=== PATIENT | male | born 2000 | race American Indian/Alaskan Native ===

== ENCOUNTER 2022-04-25 06:01 | Day surgery (SDC) | payer MEDICAID ==
[2022-04-25] MEDS ORDERED: LACTATED RINGERS 1,000 ML ONE (06:40)
[2022-04-25] MEDS ORDERED: BUPIVACAINE/PF (0.5%) 5 MG/1 ML 30 ML VIAL INFILTRATI ONE ×2 (07:19→08:38)
[2022-04-25] MEDS ORDERED: LIDOCAINE (1%) 10 MG/1 ML VIAL 20 ML MDV ONE (07:19)
[2022-04-25] MEDS ORDERED: LIDOCAINE MPF (2%) 20 MG/1 ML VIAL 5 ML ONE (07:20)
[2022-04-25] MEDS ORDERED: fentaNYL 100 MCG/2 ML INJ ONE (07:21)
[2022-04-25] MEDS ORDERED: propofoL 200 MG/20 ML VIAL IV ONE (07:21)
[2022-04-25] MEDS ORDERED: ONDANSETRON 4 MG/2 ML INJ IV PRN (07:23)
[2022-04-25] MEDS ORDERED: HYDROmorphone 0.5 MG/0.5 ML INJ IV PRN ×2 (07:23→07:30)
--- NOTE | 2022-04-25 07:25 | Anesthesia Day of Surgery ---
Anesthesia Day of Surgery - Day of Surgery Patient Examined: Yes Patient H&P Reviewed: Yes Patient is NPO: Yes
--- NOTE | 2022-04-25 07:25 | Anesthesia Consultation ---
Anesthesia Consult and Med Hx Date of service: 04/25/22 - Airway Anesthetic Teeth Evaluation: Good ROM Head & Neck: Adequate Mental/Hyoid Distance: Adequate Mallampati Class: Class I Intubation Access Assessment: Good - Pre-Operative Health Status ASA Pre-Surgery Classification: ASA2 Proposed Anesthetic Plan: General - Pulmonary Hx Smoking: No Hx Asthma: Yes ( CHILD ONLY- RESOLVED) Hx Sleep Apnea: No (JUANJOSE PRE SCREEN LOW RISK) - Cardiovascular System Hx Hypertension: No - Central Nervous System Hx Psychiatric Problems: No - Hematic Hx Anemia: No - Other Systems Hx Cancer: No - Additional Comments Anesthesia Medical History Comments: HIV+
[2022-04-25] MEDS ORDERED: HYDROGEN PEROXIDE 118 ML SOLUTION ONE (07:50)
[2022-04-25] MEDS ORDERED: ROCURONIUM 50 MG/5 ML INJ IV ONE (07:53)
[2022-04-25] MEDS ORDERED: MIDAZOLAM 2 MG/2 ML INJ ONE (07:53)
[2022-04-25] MEDS ORDERED: LACTATED RINGERS 1,000 ML IV SCH (08:00)
[2022-04-25] MEDS ORDERED: dexAMETHasone 20 MG/5 ML VIAL ONE (08:20)
[2022-04-25] MEDS ORDERED: ONDANSETRON 4 MG/2 ML INJ ONE (08:20)
[2022-04-25] MEDS ORDERED: LIDOCAINE (1%) 10 MG/1 ML VIAL 20 ML MDV INFILTRATI ONE (08:38)
[2022-04-25] MEDS ORDERED: SODIUM CHLORIDE 0.9% IRR 1,500 ML BOTTLE IR ONE (08:38)
[2022-04-25] MEDS ORDERED: HYDROGEN PEROXIDE 118 ML SOLUTION TP ONE (08:38)
[2022-04-25] MEDS ORDERED: DIBUCAINE 1% OINT 28 GM ONE (08:51)
[2022-04-25] MEDS ORDERED: NEOSTIGMINE 10MG/10 ML INJ MDV ONE (08:59)
[2022-04-25] MEDS ORDERED: HYDROmorphone 0.5 MG/0.5 ML INJ ONE (08:59)
[2022-04-25] MEDS ORDERED: GLYCOPYRROLATE 0.4 MG/2 ML INJ ONE (08:59)
[2022-04-25] MEDS ORDERED: DIBUCAINE 1% OINT 28 GM PR ONE (09:00)
--- NOTE | 2022-04-25 09:11 | Short Stay Summary ---
Short Stay Documentation Date of service: 04/25/22 - History Principal diagnosis: Rectal fistula H&P: obtained from office - Allergies and Medications Current Medications: Allergies No Known Allergies Allergy (Verified 04/06/22 15:59) Home Medications Medication Instructions Recorded Confirmed Last Taken Type Bictegrav/Emtricit/Tenofov Ala 1 tab PO DAILY 04/06/22 04/06/22 Unknown History [Biktarvy 50-200-25 mg (Nf)] Active Medications Hydromorphone HCl (Hydromorphone 0.5 Mg/0.5 Ml Inj) 0.25 mg IV Q10MIN PRN PRN Reason: Pain, Moderate (4-6) Stop: 04/25/22 20:00 Hydromorphone HCl (Hydromorphone 0.5 Mg/0.5 Ml Inj) 0.5 mg IV Q10MIN PRN PRN Reason: Pain , Severe (7-10) Stop: 04/25/22 20:00 Lactated Ringer's (Lactated Ringers) 1,000 mls @ 125 mls/hr IV DIRECT JEFERSON Last Admin: 04/25/22 07:39 Dose: 125 mls/hr Ondansetron HCl (Ondansetron 4 Mg/2 Ml Inj) 4 mg IV ONCE PRN PRN Reason: Nausea And Vomiting Stop: 04/25/22 12:00 - Brief post op/procedure progress note Date of procedure: 04/25/22 Pre-op diagnosis: rectal fistula Post-op diagnosis: same Procedure: rectal exam under anesthesia, fistulectomy, partial sphincterotomy Anesthesia: GETA, local Findings: Transsphincteric anterior fisula in ano Surgeon: PABLO SANCHEZ Physical Instructor: ROLANDO PINEDA Estimated blood loss: minimal (30cc) Pathology: list (fistula tract) Specimen disposition: to lab Condition: stable - Hospital course Hospital course: Pt observed in PACU and discharged to home in stable condition when criteria met - Disposition Condition at discharge: Good Disposition: 01 HOME / SELF CARE / HOMELESS Short Stay Discharge Plan Activity: no restrictions Diet: regular Wound: open to air, per your surgeon's advice Additional Instructions: SEE PRINTED INSTRUCTIONS Follow up with: PRIMARY CARE,MD [Primary Care Provider] - 7 Days PABLO SANCHEZ DO [Staff Physician] - 14 Days Prescriptions: Ibuprofen [Motrin 800 MG tab] 800 mg PO Q8HR PRN #30 tablet PRN Reason: Pain, Moderate (4-6) HYDROcodone/APAP 5-325 [[place] 5/325] 1 each PO Q4HR PRN #20 tablet PRN Reason: Pain , Severe (7-10)
[2022-04-25 10:44] VITALS: BP 141/98
--- NOTE | 2022-04-25 14:07 | Operative Report ---
Operative Report Operative Report: Date of procedure: 04/25/22 Pre-op diagnosis: rectal fistula Post-op diagnosis: same Procedure: rectal exam under anesthesia, fistulectomy, partial sphincterotomy Anesthesia: GETA, local Findings: Transsphincteric anterior fisula in ano Surgeon: PABLO SANCHEZ Product Lead: ROLANDO PINEDA Estimated blood loss: minimal (30cc) Pathology: list (fistula tract) Specimen disposition: to lab Condition: stable Hospital course: Pt observed in PACU and discharged to home in stable condition when criteria met Condition at discharge: Good Disposition: 01 HOME / SELF CARE / HOMELESS HPI and indication: Patient is a 21-year-old male with a history of recurrent perirectal abscesses. Patient is HIV positive but well controlled on antire trovirals. Patient was seen in surgery clinic and noted to have likely rectal fistula. It was recommended that the patient undergo rectal exam under anesthesia with fistulotomy versus fistulectomy, possible seton placement. All risks, benefits, alternatives to surgery were discussed and questions answered. Consent obtained. Procedure in detail: Patient was identified in the preoperative area, taken back to operating room. After anesthesia was induced on the patient's stretcher, the patient was transferred to the operating room table in prone position. All bony prominences were padded appropriately per protocol. The patient was placed in jackknife position and the buttocks taped apart using silk tape. The rectum and perirectal area was prepped and draped in usual sterile fashion a timeout performed. A rectal exam under anesthesia was performed with a fansler retractor. A skin lesion in the left anterior position was identified and investigated with a rectal probe. The probe extended through the subcutaneous tissue into the rectum and through the external sphincter. Hydrogen peroxide was injected into the tract using an 18 G angiocath and there was peroxide visualized where the probe exited into the rectum through the external sphincter. The tract was unroofed using a 15 blade. Partial sphincterotomy was performed through external sphincter. Chronic scar tissue in the tract was excised and passed off table as specimen. The cavity was checked for hemostasis and carefully ensured. The rectum was irrigated. Local anesthetic was infiltrated into all 4 quadrants of the perirectal tissue. A Surgifoam gauze coated with dibucaine was inserted into the rectum. The skin was cleansed and a 4 x 4 gauze was used to cover the rectum, covered by ABD pad, and secured with mesh underwear. At the end of the case all sponge, instrument, sharp counts were correct x2. The patient was awoken from anesthesia and transferred back to the stretcher in supine position. He was extubated and taken to PACU in stable condition.
--- NOTE | 2022-04-25 16:11 | Post Anesthesia Evaluation ---
- Post Anesthesia Evaluation Patient Participated: Yes Airway Patent: Yes Stable Respiratory Function: Yes Nausea/Vomiting: No Temp > 96.8F: Yes Pain Manageable: Yes Adequeate Hydration: Yes Anesthesia Complications: No Block Receding Appropriately: Not Applicable Patient on Ventilator: No
== END 2022-04-25 10:20 | disposition home or self-care (01) ==
LOC: OR 06:01
PROVIDERS: ATTEND Surgery
DX: K60.4 Rectal fistula (principal); J45.909 Unspecified asthma, uncomplicated; Z79.899 Other long term (current) drug therapy; Z98.890 Other specified postprocedural states; Z20.822 Contact with and (suspected) exposure to COVID-19
CPT/HCPCS: 46270; 88304; J1100; J1170; J1815; J2250; J2405; J2704; J2710; J3010; J3490; J7120; U0003